=== PATIENT | female | born 1995 | race Caucasian/White ===

== ENCOUNTER 2025-04-30 11:18 | Outpatient (CLI) | payer OTHER, SELFPAY | END 2025-04-30 11:19 | disposition home or self-care (01) | LOC: NFLDREF 05-02 11:59 | PROVIDERS: PCP Physician Assistant Medical; Referring Provider Physician Assistant Medical; Visit Provider Physician Assistant Medical | DX: J45.40 Moderate persistent asthma, uncomplicated (principal) | CPT/HCPCS: 80053; 80061; 84443 ==